=== PATIENT | male | born 1955 | race African-American/Black ===

== ENCOUNTER → 2020-08-10 | Outpatient (CLI) | payer MEDICARE, OTHER ==
--- NOTE | 2020-08-10 13:27 | RADIOLOGY REPORT (SQ) ---
EXAM DESCRIPTION: CT ABDOMEN COMBO IMAGES COMPLETED DATE/TIME: 08/10/2020 10:42 am REASON FOR STUDY: (R10.816)EPIGASTRIC ABDOMINAL TENDERNESS R10.816 EPIGASTRIC ABDOMINAL TENDERNESS R86.9 UNSP ABNORMAL FINDING IN SPECIMENS FROM MALE GENITAL O COMPARISON: None. TECHNIQUE: CT scan of the abdomen performed with and without intravenous contrast, and with oral con trast. Contrasted imaging performed using helical scanning technique with dynamic intravenous contras t injection. Images reviewed with lung, soft tissue, and bone windows. Reconstructed coronal and sagi ttal MPR images reviewed. Delayed images for evaluation of the urinary system also acquired and evalu ated. All images stored on PACS. All CT scanners at this facility use dose modulation, iterative reconstruction, and/or weight based d osing when appropriate to reduce radiation dose to as low as reasonably achievable (ALARA). [facility]: Dose Right [facility]: CareDose [facility]: Dose Right [facility]: Teradose 4D [facility]: [email or web address] CONTRAST TYPE AND DOSE: contrast/concentration: Isovue 350.00 mmol/ml; Total Contrast Delivered: 100 .0 ml; Total Saline Delivered: 38.0 ml RENAL FUNCTION: Creatinine 1.1 RADIATION DOSE: CT Rad equipment meets quality standard of care and radiation dose reduction techniq ues were employed. CTDIvol: 8.9 - 9.0 mGy. DLP: 980 mGy-cm.. LIMITATIONS: None. FINDINGS: NONCONTRASTED IMAGING: There is a tiny nonobstructing lower calyceal calculus in the right kidney. No other significant calcifications are seen. POSTCONTRASTED IMAGING: LOWER CHEST: No significant findings. No nodules or infiltrates. LIVER: Normal size. No masses. No dilated ducts. SPLEEN: Normal size. No focal lesions. PANCREAS: No masses. No significant calcifications. No adjacent inflammation or peripancreatic fluid collections. Pancreatic duct not dilated. GALLBLADDER: No identified stones by CT criteria. No inflammatory changes to suggest cholecystitis. ADRENAL GLANDS: No significant masses or asymmetry. RIGHT KIDNEY AND URETER: No solid masses. Tiny nonobstructing lower calyceal calculus. No hydrone phrosis or hydroureter. LEFT KIDNEY AND URETER: No solid masses. No significant calcifications. No hydronephrosis or hydr oureter. AORTA AND VESSELS: No aneurysm. No dissection. Renal arteries, SMA, celiac without stenosis. RETROPERITONEUM: No retroperitoneal adenopathy, hemorrhage or masses. BOWEL AND PERITONEAL CAVITY: No masses or inflammatory changes. No free fluid or peritoneal masses. APPENDIX: Not included. ABDOMINAL WALL: No masses. No hernias. BONES: There is some opacification posteriorly in the lower spinal canal. A small amount of air is p resent. Has the patient had a recent myelogram? Hypertrophic facet changes are seen at L4-5 on the left. OTHER: None. IMPRESSION: 1. There is no acute finding in the abdomen or upper pelvis. 2. There is a tiny nonobstructing lower calyceal calculus in the right kidney. 3. Facet arthropathy at L4-5 on the left. 4. There is some opacity in the posterior aspect of the spinal canal along with some bubbles of air suggesting perhaps an attempted myelogram. TECHNICAL DOCUMENTATION: JOB ID: [id number] Quality ID # [id number]: Final reports with documentation of one or more dose reduction techniques (e.g., Au tomated exposure control, adjustment of the mA and/or kV according to patient size, use of iterative reconstruction technique) 2010 [employer]- All Rights Reserved Reading location - IP/workstation name: [email or web address]
== END ==
LOC: RAD 09:55
PROVIDERS: ATTEND Internal Medicine Gastroenterology
DX: N20.0 Calculus of kidney (principal); K86.9 Disease of pancreas, unspecified; R10.816 Epigastric abdominal tenderness
CPT/HCPCS: 74170; 82565